=== PATIENT | male | born 1980 | race African-American/Black ===

== ENCOUNTER 2018-09-21 21:43 | Emergency (ER) | payer OTHER ==
[~2018-09-21] VITALS: Ht 177.8 cm; Wt 87.0 kg
[2018-09-21 22:19] VITALS: Ht 177.8 cm; Wt 87.0 kg
[2018-09-22] MEDS ORDERED: KETOROLAC 60 MG INJ IM STA (03:06)
[2018-09-22] MEDS ORDERED: HYDROCODONE/APAP (5/325) TAB PO ONE (03:30)
[2018-09-22] MEDS ORDERED: IBUP800T48 PO (04:10)
[2018-09-22] MEDS ORDERED: TRAM50TA2 PO (04:10)
[2018-09-22 05:27] VITALS: BP 116/72; PULSE 81; RESP 17
--- NOTE | 2018-09-22 20:25 | ERD ---
ER Documentation Chief Complaint Chief Complaint L neck/upper shoulder pain X 12 hrs after hit by falling box at work HPI History of Present Illness: She coming in today with complaint of left neck pain and upper shoulder pain that occurred approximately 12 hours prior to arrival. 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 Patient denies loss of consciousness. At home pharmacological/nonpharmacological treatment for symptoms: Denies Denies social concerns; Denies recent foreign travel ROS All systems reviewed and are negative except as per history of present illness. Medications Home Meds Active Scripts Tramadol HCl (Tramadol HCl) 50 Mg Tablet, 50 MG PO Q6 for pain level (6-10), #8 TAB Prov:BETTY HUNT [employer] 09/22/18 Ibuprofen* (Motrin*) 800 Mg Tab, 800 MG PO Q6H PRN for PAIN AND/OR INFLAMMATION, #30 TAB Prov:BETTY HUNT [employer] 09/22/18 Allergies Allergies: Coded Allergies: No Known Allergy (Unverified , 09/21/18) PMhx/Soc Medical and Surgical Hx: pt denies Medical Hx, pt denies Surgical Hx Hx Alcohol Use: No Hx Substance Use: No Hx Tobacco Use: No Smoking Status: Never smoker FmHx Family History: diabetes; No coronary disease Physical Exam Vitals Vital Signs Date Temp Pulse Resp B/P (MAP) Pulse Ox O2 O2 Flow FiO2 Time Delivery Rate 09/22/18 97.8 81 17 116/72 98 Room Air 05:27 (87) 09/21/18 97.8 87 18 121/66 98 22:19 (84) Physical Exam Const: No acute distress Head: Atraumatic Eyes: Normal Conjunctiva ENT: Normal External Ears, Nose and Mouth. Neck: Full range of motion. No meningismus. Tenderness to palpation to paraspinal, left-sided. Tenderness to palpation over trapezius. Patient with full extension and flexion of shoulder. No midline tenderness. Resp: Clear to auscultation bilaterally Cardio: Regular rate and rhythm, no murmurs Abd: Soft, non tender, non distended. Normal bowel sounds Skin: No petechiae or rashes Back: No midline or flank tenderness Ext: No cyanosis, or edema Neur: Awake and alert Psych: Normal Mood and Affect Results 24 hrs Current Medications Medications Dose Sig/Teresa Start Time Status Last (Trade) Ordered Route PRN Stop Time Admin Dose Reason Admin Ketorolac 60 mg ONCE STAT 09/22/18 DC 09/22/18 Tromethamine IM 03:06 03:13 (Toradol) 09/22/18 03:07 1 tab ONCE ONCE 09/22/18 DC 09/22/18 Acetaminophen PO 03:30 03:13 / 09/22/18 03:31 Hydrocodone Bitart (Bybee (5/325)) Procedures/MDM ED course includes a thorough examination and history. Medications: Ketorolac for pain/inflammation; Bybee for pain. Imaging: --- Labs: --- Low suspicion for life-threatening medical emergency. Low suspicion for n eurological/orthopedic emergency requires hospitalization or immediate intervention. Otherwise healthy patient presenting with constellation of symptoms likely representing uncomplicated injury of shoulder and neck/contusion as characterized by history, physical exam findings. No respiratory distress, otherwise relatively well appearing and nontoxic. ED course includes application of sling. Patient educated on diagnoses, prescriptions, follow-up care, return precautions. Strict return precautions given for worsening condition; questions answered discharge. Patient hemodynamically stable, decreased pain after medication ministration. Disposition for discharge with followup in 2 days with PCP/clinic. Departure Diagnosis: Primary Impression: Injury of shoulder, left Encounter type: initial encounter Qualified Codes: S49.92XA - Unspecified injury of left shoulder and upper arm, initial encounter Additional Impression: Injury of neck Encounter type: initial encounter Qualified Codes: S19.9XXA - Unspecified injury of neck, initial encounter Condition: Stable Patient Instructions: Contusions (Bruises), Neck Sprain/Strain Referrals: [facility] YOU HAVE RECEIVED A MEDICAL SCREENING EXAM AND THE RESULTS INDICATE THAT YOU DO NOT HAVE A CONDITION THAT REQUIRES URGENT TREATMENT IN THE EMERGENCY DEPARTMENT. FURTHER EVALUATION AND TREATMENT OF YOUR CONDITION CAN WAIT UNTIL YOU ARE SEEN IN YOUR DOCTORS OFFICE WITHIN THE NEXT 1-2 DAYS. IT IS YOUR RESPONSIBILITY TO MAKE AN APPOINTMENT FOR FOLOW-UP CARE. IF YOU HAVE A PRIMARY DOCTOR --you should call your primary doctor and schedule an appointment IF YOU DO NOT HAVE A PRIMARY DOCTOR YOU CAN CALL OUR PHYSICIAN REFERRAL HOTLINE AT IF YOU CAN NOT AFFORD TO SEE A PHYSICIAN YOU CAN CHOSE FROM THE FOLLOWING [facility] [address] [place] [facility] [address] [facility] [address] [facility] [address] [facility] [facility] [address] [facility]. [facility] [address] [facility] YOU HAVE RECEIVED A MEDICAL SCREENING EXAM AND THE RESULTS INDICATE THAT YOU DO NOT HAVE A CONDITION THAT REQUIRES URGENT TREATMENT IN THE EMERGENCY DEPARTMENT. FURTHER EVALUATION AND TREATMENT OF YOUR CONDITION CAN WAIT UNTIL YOU ARE SEEN IN YOUR DOCTORS OFFICE WITHIN THE NEXT 1-2 DAYS. IT IS YOUR RESPONSIBILITY TO MAKE AN APPOINTMENT FOR FOLOW-UP CARE. IF YOU HAVE A PRIMARY DOCTOR --you should call your primary doctor and schedule and appointment IF YOU DO NOT HAVE A PRIMARY DOCTOR YOU CAN CALL OUR PHYSICIAN REFERRAL HOTLINE AT . IF YOU CAN NOT AFFORD TO SEE A PHYSICIAN YOU CAN CHOSE FROM THE FOLLOWING [facility] INSTITUTIONS: [facility] [address] [place] [address] [facility] [address] [place] [address] [facility] + [facility] [address] [place] [address] Additional Instructions: Thank you very much for allowing us to participate in your care. Your health and safety is our top priority at [facility]. It is important to read all discharge instructions and education provided in your discharge packet. Call your primary care doctor TOMORROW for an appointment during the next 2-4 days and bring all the information and medications prescribed. Have prescriptions filled and follow precisely the directions on the label. Ibuprofen is for pain and inflammation; take this medication over the next few days to decrease inflammation. Tramadol for moderate to severe pain; do not operate heavy machinery while taking this medicine due to it possibly making you drowsy. If the symptoms get worse and your provider is unavailable, return to the Emergency Department immediately. BETTY HUNT NP Sep 22, 2018 20:25
== END 2018-09-22 05:27 | disposition home or self-care (01) ==
LOC: FTE 21:43
DX: S49.92XA Unspecified injury of left shoulder and upper arm, initial encounter (principal); S19.9XXA Unspecified injury of neck, initial encounter; W20.8XXA Other cause of strike by thrown, projected or falling object, initial encounter; Y92.89 Other specified places as the place of occurrence of the external cause
CPT/HCPCS: 96372; 99284; J1885